=== PATIENT | male | born 1990 | race Asian ===

== ENCOUNTER 2022-07-31 10:09 | Outpatient (CLI) | payer MEDICARE, MEDICAID, SELFPAY | END 2022-07-31 10:10 | disposition home or self-care (01) | PROVIDERS: PCP Student in an Organized Health Care Education/Training Program; Visit Provider Family Medicine | DX: Z00.00 Encounter for general adult medical examination without abnormal findings (principal); E78.5 Hyperlipidemia, unspecified | CPT/HCPCS: 80053; 80061 ==

== ENCOUNTER 2023-01-17 16:20 | Outpatient (CLI) | payer MEDICARE, MEDICAID, SELFPAY | END 2023-01-17 16:21 | disposition home or self-care (01) | LOC: FRMREF 16:22 | PROVIDERS: PCP Family Medicine; Visit Provider Family Medicine | DX: E78.5 Hyperlipidemia, unspecified (principal); R56.9 Unspecified convulsions | CPT/HCPCS: 80053 ==

== ENCOUNTER 2024-03-16 13:14 | Outpatient (CLI) | payer MEDICARE, MEDICAID, SELFPAY | END 2024-03-16 13:15 | disposition home or self-care (01) | PROVIDERS: PCP Family Medicine; Visit Provider Family Medicine | DX: E78.5 Hyperlipidemia, unspecified (principal); R79.89 Other specified abnormal findings of blood chemistry | CPT/HCPCS: 80053; 80061 ==